=== PATIENT | female | born 1995 | race African-American/Black ===

== ENCOUNTER 2016-06-07 22:30 | Emergency (ER) | payer SELFPAY ==
[~2016-06-07 22:30] MED LIST: NO MEDICATIONS
== END 2016-06-07 22:40 | disposition left against medical advice (07) ==
LOC: SED 22:30
DX: Z53.21 Procedure and treatment not carried out due to patient leaving prior to being seen by health care provider (principal)

== ENCOUNTER 2016-10-12 21:44 | Emergency (ER) | payer SELFPAY ==
[~2016-10-12] VITALS: Ht 170.2 cm; Wt 59.0 kg
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
== END 2016-10-12 22:55 | disposition home or self-care (01) ==
LOC: SED 21:44
DX: S29.012A Strain of muscle and tendon of back wall of thorax, initial encounter (principal); Z88.1 Allergy status to other antibiotic agents; V49.40XA Driver injured in collision with unspecified motor vehicles in traffic accident, initial encounter
CPT/HCPCS: 71020; 73060; 73090; 99284